=== PATIENT | male | born 1940 | race African-American/Black ===

== ENCOUNTER 2020-08-09 18:52 | Emergency (ER) | payer MEDICARE ==
[2020-08-09] MEDS ORDERED: traMADol HCl 50 MG TAB ONE (19:47)
[2020-08-09] MEDS ORDERED: Ibuprofen 800 MG TAB ONE (19:47)
--- NOTE | 2020-08-09 22:49 | CT ---
CT LUMBAR SPINE: Date: 08/09/[address] of the lumbar spine was performed for evaluation of back pain. I understand that he has a l eft lower extremity radiculopathy. No fracture was seen. There was no area of bony destruction. Disc space narrowing is prominent at L1- L2 and L2-L3. Findings by level follow: T11-T12: No acute findings. T12-L1: No acute findings. L1-L2: Narrow disc space and end plate degenerative changes. Foramina patent. L2-L3: Left paracentral osteophyte that impinges upon the left lateral recess at this level. If the patient has a left-sided radiculopathy, particularly in the L2 or L3 distribution, this could be cont ributory. L3-L4: No acute findings. L4-L5: Some facet arthritis and overgrowth are present at this level. There is a mild concentric bul ge of the disc. As one comes to the top of L5, there is a calcification protruding from the ligamentu m flavum from the right posterolateral portion of the spinal canal that slightly impinges on the thec al sac, but might not cause neural symptoms. L5-S1: No acute findings. SI joints: Some vacuum phenomenon on the joints, but otherwise no acute issues of concern. IMPRESSION: 1. Diffuse degenerative changes with disc narrowing particularly at L1-L2 and L2-L3. 2. Large left paracentral osteophyte at L2-L3 that impinges upon the left lateral recess at this lev el. See above. Findings discussed with Dr. Gongora at 1945 hours on 08/09/2020. CODE CR. POS: HOME
== END 2020-08-09 20:30 | disposition home or self-care (01) ==
LOC: BURERS 18:52
DX: M47.816 Spondylosis without myelopathy or radiculopathy, lumbar region (principal); G89.29 Other chronic pain; M54.41 Lumbago with sciatica, right side; M54.42 Lumbago with sciatica, left side; I69.892 Facial weakness following other cerebrovascular disease; I69.851 Hemiplegia and hemiparesis following other cerebrovascular disease affecting right dominant side; I69.928 Other speech and language deficits following unspecified cerebrovascular disease; I11.0 Hypertensive heart disease with heart failure; I50.9 Heart failure, unspecified; E78.5 Hyperlipidemia, unspecified; E78.00 Pure hypercholesterolemia, unspecified; I25.10 Atherosclerotic heart disease of native coronary artery without angina pectoris; I25.2 Old myocardial infarction; E11.9 Type 2 diabetes mellitus without complications; I72.9 Aneurysm of unspecified site; Z87.891 Personal history of nicotine dependence; Z79.899 Other long term (current) drug therapy
CPT/HCPCS: 72131